=== PATIENT | female | born 1970 | race African-American/Black ===

== ENCOUNTER 2020-07-25 04:49 | Emergency (ER) | payer MEDICAID ==
[~2020-07-25] VITALS: Ht 170.2 cm; Wt 4.4 kg
[2020-07-25 06:56] VITALS: BP 176/98
[2020-07-25] MEDS ORDERED: cloNIDine HCL 0.1 MG TAB PO ONE (07:00)
== END 2020-07-25 07:09 | disposition home or self-care (01) ==
LOC: ER 04:49
DX: S70.362A Insect bite (nonvenomous), left thigh, initial encounter (principal); S70.361A Insect bite (nonvenomous), right thigh, initial encounter; S90.562A Insect bite (nonvenomous), left ankle, initial encounter; S90.561A Insect bite (nonvenomous), right ankle, initial encounter; S30.860A Insect bite (nonvenomous) of lower back and pelvis, initial encounter; I10 Essential (primary) hypertension; F17.210 Nicotine dependence, cigarettes, uncomplicated; Z91.14 Patient's other noncompliance with medication regimen; W57.XXXA Bitten or stung by nonvenomous insect and other nonvenomous arthropods, initial encounter; Y93.89 Activity, other specified; Y92.89 Other specified places as the place of occurrence of the external cause; Y99.8 Other external cause status

== ENCOUNTER 2020-10-02 00:36 | Emergency (ER) | payer MEDICAID ==
[~2020-10-02] VITALS: Ht 170.2 cm; Wt 72.6 kg
[2020-10-02 00:45] VITALS: BP 193/119
== END 2020-10-02 02:40 | disposition left against medical advice (07) ==
LOC: ER 00:36
DX: S90.861A Insect bite (nonvenomous), right foot, initial encounter (principal); Z53.21 Procedure and treatment not carried out due to patient leaving prior to being seen by health care provider; W57.XXXA Bitten or stung by nonvenomous insect and other nonvenomous arthropods, initial encounter; Y93.89 Activity, other specified; Y92.89 Other specified places as the place of occurrence of the external cause; Y99.8 Other external cause status

== ENCOUNTER → 2020-11-23 | Outpatient (CLI) | payer MEDICAID ==
[2020-11-23 11:13] LABS: Basophils # (auto) 0 10 ^3/uL (0-0.2); Basophils % (auto) 0.5 % (0.0-2.0); Eosinophils # (auto) 0.2 10 ^3/uL (0-0.8); Eosinophils % (auto) 1.8 % (0.0-7.0); Hematocrit 40.7 % (36.0-46.0); Lymphocytes # (auto) 2.4 10 ^3/uL (0.4-5.4); Lymphocytes % (auto) 26.8 % (10.0-50.0); Mean Corpuscular Hemoglobin 33.8 pg (28.0-32.0); Mean Corpuscular Hgb Conc. 34.3 g/dL (32.0-36.0); Mean Corpuscular Volume 98.4 fL (80.0-100.0); Monocytes # (auto) 0.5 10 ^3/uL (0-1.3); Monocytes % (auto) 6.1 % (0.0-12.0); Neutrophils # (auto) 5.8 10 ^3/uL (1.6-8.6); Neutrophils % (auto) 64.8 % (37.0-80.0); Red Blood Cells 4.14 10^6/uL (4.0-5.20); Red Cell Distribution Width 14.8 % (11.8-14.3); White Blood Cell 8.9 10^3/uL (4.4-10.8)
[2020-11-23 15:18] LABS: Follicle Stimulating Hormone 77.85 IU/L (SEE BELOW); Leuteinizing Hormone 50.8 IU/L
== END | disposition home or self-care (01) ==
LOC: LAB 10:30
PROVIDERS: ATTEND Obstetrics & Gynecology
DX: N91.2 Amenorrhea, unspecified (principal); N76.0 Acute vaginitis
CPT/HCPCS: 36415; 82670; 83001; 83002; 84403; 84443; 85025

== ENCOUNTER 2024-03-08 22:34 | Emergency (ER) | payer MEDICAID ==
[~2024-03-08] VITALS: Ht 170.2 cm; Wt 68.1 kg
[2024-03-08 22:42] VITALS: BP 158/78; PULSE 85; RESP 20; O2SAT 95
--- NOTE | 2024-03-08 23:00 | ED.PDOC ---
History of Present Illness HPI Comments 54 y/o F, with a Hx of HTN, migraines, and nicotine vape and marijauna use, is BIBA for c/o headache and right-ear and bilateral eye pain, today. Patient is a poor historian and reports on having "splinters in [her] eyes" for an unknown duration of time, with additional sudden onset of headache and ear pain at 2030, this evening. Patient states on headache being a 10/10 and having a "vibration" sensation associated with it. Patient comments on being seen and evaluated for her eye symptoms at [facility] 2-3x weeks ago and being informs on having "cornea abrasions" then, with no f/u with ophthalmology outpatient since. Patient states on having no current neurologist and no medications for her migraines. Denies any speech changes, fever, chills, nausea, vomiting, or other associated symptoms or modifiers at this time. 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 Past Medical History PAST MEDICAL HISTORY: Arthritis, Depression, HTN Past Medical History (Other): migraines Surgical History: Denies all surgeries LINE MAINTENANCE History: Denies all LINE MAINTENANCE Hx Family History Family History: Reviewed,noncontributory to illness, No family hx of DM, No family hx of Heart surya, No family hx of HTN, No family hx ofKidney surya, No family hx of Liver surya, No family hx of Lung surya, No family hx of Stroke, Family hx of Cancer Social History Smoker: Other (nicotine vape pen use ) Alcohol: Denies ETOH Use Drugs: Marijuana Lives In: Home Constitutional: denies: chills, diaphoresis, fatigue, fever, malaise, sweats, weakness, others EENTM: reports: ear pain (right side), eye pain; denies: blurred vision, double vision, ear bleeding, ear discharge, ear drainage, ear ringing, eye redness, hearing loss, mouth pain, mouth swelling, nasal discharge, nose bleeding, nose congestion, nose pain, photophobia, tearing, throat pain, throat swelling, voice changes, others Respiratory: denies: cough, hemoptysis, orthopnea, SOB at rest, shortness of breath, SOB with excertion, stridor, wheezing, others Cardiovascular: denies: chest pain, dizzy spells, diaphoresis, Dyspnea on exertion, edema, irregular heart beat, left arm pain, lightheadedness, palpitations, PND, syncope, others Gastrointestinal: denies: abdomen distended, abdominal pain, blood streaked bowels, constipated, diarrhea, dysphagia, difficulty swallowing, hematemesis, melena, nausea, poor appetite, poor fluid intake, rectal bleeding, rectal pain, vomiting, others Genitourinary: denies: abnormal vagina bleeding, burning, dyspareunia, dysuria, flank pain, frequency, hematuria, incontinence, pain, , vagina discharge, urgency, others Neurological: reports: headache; denies: dizziness, fainting, left sided numbness, left sided weakness, numbness, paresthesia, pre-existing deficit, right sided numbness, right sided weakness, seizure, speech problems, tingling, tremors, weakness, others Musculoskeletal: denies: back pain, gout, joint pain, joint swelling, muscle pain, muscle stiffness, neck pain, others Integumetry: denies: bruises, change in color, change in hair/nails, dryness, laceration, lesions, lumps, rash, wounds, others Allergic/Immunocompromised: denies: Difficulty Healing, Frequent Infections, Hives, Itching, others Hematologic/Lymphatic: denies: anemia, blood clots, easy bleeding, easy bruising, swollen glands, others Endocrine: denies: excessive hunger, excessive sweating, excessive thirst, excessive urination, flushing, intolerance to cold, intolerance to heat, unexplained weight gain, unexplained weight loss, others Psychiatric: denies: anxiety, bipolar disorder, depression, hopeless, panic disorder, schizophrenia, sleepless, suicidal, others All Other Systems: Reviewed and Negative Physical Exam General Appearance: Mild Distress HEENT: Normal ENT Inspection, Pharynx Normal, TMs Normal Neck: Full Range of Motion, Non-Tender, Normal, Normal Inspection Respiratory: Chest Non-Tender, Lungs Clear, No Accessory Muscle Use, No Respiratory Distress, Normal Breath Sounds Cardiovascular: No Edema, No JVD, No Murmur, No Gallop, Normal Peripheral Pulses, Regular Rate/Rhythm Breast Exam: Deferred Gastrointestinal: No Organomegaly, Non Tender, No Pulsatile Mass, Normal Bowel Sounds, Soft Genitalia: Deferred Pelvic: Deferred Rectal: Deferred Extremities: No calf tenderness, Normal capillary refill, Normal inspection, Normal range of motion, Non-tender, No pedal edema Musculoskeletal : Apperance: Normal Neurologic: Alert, poultry veterinarian II-XII nml as Tested, No Motor Deficits, Normal Affect, Normal Mood, No Sensory Deficits Cerebellar Function: Normal Reflexes: Normal Skin: Dry, Normal Color, Warm Lymphatic: No Adenopathy Was a procedure done? Was a procedure done?: No Differential Dx Considerations may include: cluster migraines, tension headache, sinuitis, foreign body in eyes, otitis media, viral syndrome X-Ray, Labs, Meds, VS Vital Signs Date Time Temp Pulse Resp B/P (MAP) Pulse Ox O2 Delivery O2 Flow Rate FiO2 03/08/24 22:42 98.6 85 20 158/78 (104) 95 The patient was given Dilaudid 1 mg IM. Zofran 4 mg IM The patient at tetracaine drops placed in the eyes Time of 1ST Reevaluation: 23:10 Reevaluation 1ST: Unchanged Patient Education/Counseling: Diagnosis, Treatment, Prognosis, Need For Follow Up Family Education/Counseling: No Family Present Departure 1 Departure Time of Disposition: 23:01 Impression: Primary Impression: Eye pain Qualified Codes: H57.13 - Ocular pain, bilateral Additional Impression: Tension headache Disposition: 01 HOME / SELF CARE / HOMELESS Condition: Fair Discharged With: Self Critical Care Note Critical Care Time?: No Stability Stability form required: No Heart Score Heart Score: Heart Score Response (Comments) Value History N/A 0 EKG N/A 0 Age N/A 0 Risk Factors N/A 0 Troponin N/A 0 Total 0 I personally scribed for DEIRDRE OLSEN MD ([email or web address]) on 03/08/24 at 23:00. Electronically submitted by Jabier Joseph ([email or web address]). DEIRDRE OLSEN MD Mar 08, 2024 23:00
[2024-03-09] MEDS: TETRACAINE HCL 0.5% OPTH(EYE) SOLN 4ML EACHEYE ONE (03:30)
[2024-03-09] MEDS: HYDROmorphone HCL 2 MG/ML VL/or syr IM ONE (03:30)
[2024-03-09] MEDS: ONDANSETRON HCL 4 MG/2 ML VIAL IM ONE (03:31)
== END 2024-03-09 03:32 | disposition home or self-care (01) ==
LOC: ER 22:34 → EDBD 22:34 → ER 03-09 03:28
DX: G43.909 Migraine, unspecified, not intractable, without status migrainosus (principal); H57.13 Ocular pain, bilateral; I10 Essential (primary) hypertension; M19.90 Unspecified osteoarthritis, unspecified site; F32.9 Major depressive disorder, single episode, unspecified; F17.290 Nicotine dependence, other tobacco product, uncomplicated; F15.90 Other stimulant use, unspecified, uncomplicated